=== PATIENT | female | born 1990 | race Caucasian/White ===

== ENCOUNTER 2017-05-09 08:51 | Inpatient (IN) | payer OTHER ==
[~2017-05-09] VITALS: Ht 157.5 cm; Wt 59.0 kg
[2017-05-09 12:15] VITALS: BP 121/79
--- NOTE | 2017-05-09 12:15 | NUR ---
Pre-Assessment Pt is A&Ox 3, ambulatory independently. Dr. Woods is present. Pt is mildly intoxicated from last use of Heroin, Methamphetamine, Xanax this morning. Pt denies N/V but states that she has loss of appetite. Pt has stable V/S. Home medications brought. Pt states that she has had multiple relapses and that she has been to detox facilities. I will do initial admission assessment and skin assessment upon arrival to the unit. Will cont. to monitor the pt.
[2017-05-09] MEDS ORDERED: QUET200T PO (12:51)
[2017-05-09] MEDS ORDERED: BUPR300T54 PO (12:51)
[2017-05-09] MEDS ORDERED: GABA800T2 PO (12:51)
[2017-05-09] MEDS ORDERED: TRAZ-144 PO (12:51)
[2017-05-09] MEDS ORDERED: MIRALAX 17 GM POWD.PACK PO PRN (13:00)
[2017-05-09] MEDS ORDERED: BUPRENORPHINE HCL 2 MG TAB.SUBL SL PRN (13:00)
[2017-05-09] MEDS ORDERED: ONDANSETRON 4 MG/2 ML VIAL IM PRN (13:00)
[2017-05-09] MEDS ORDERED: LORAZEPAM 2 MG/1 ML VIAL IM PRN (13:00)
[2017-05-09] MEDS ORDERED: diphenhydrAMINE 50 MG CAPSULE PO PRN (13:00)
[2017-05-09] MEDS ORDERED: ONDANSETRON ODT 4 MG TAB.RAPDIS SL PRN (13:00)
[2017-05-09] MEDS ORDERED: LOPERAMIDE HCL 2 MG CAPSULE PO PRN ×2 (13:00)
[2017-05-09] MEDS ORDERED: MAG HYDROX/AL HYDROX/SIMETH 30 ML LIQUID UDC PO PRN (13:00)
[2017-05-09] MEDS ORDERED: MAGNESIUM HYDROXIDE 30 ML LIQUID UDC PO PRN (13:00)
[2017-05-09] MEDS ORDERED: ACETAMINOPHEN 325 MG TABLET PO PRN (13:00)
[2017-05-09] MEDS ORDERED: DICYCLOMINE HCL 20 MG TABLET PO PRN (13:00)
[2017-05-09] MEDS ORDERED: DIAZEPAM 5 MG TABLET PO PRN (13:00)
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
[2017-05-09 13:29] LABS: *URINE HCG, QUAL NEGATIVE (NEGATIVE)
[2017-05-09 13:34] LABS: *AMPHETAMINE, URINE POSITIVE (NEGATIVE); *BARBITURATE, URINE POSITIVE (NEGATIVE); *CANNABINOID, URINE NEGATIVE (NEGATIVE); *COCCAINE, URINE NEGATIVE (NEGATIVE); *OPIATE, URINE POSITIVE (NEGATIVE); *PHENCYCLIDINE SCREEN,URINE NEGATIVE (NEGATIVE)
[2017-05-09 13:41] LABS: BASOPHILS % (AUTO) 0.4 % (0.0-2.0); EOSINOPHILS # (AUTO) 0.1 K/uL (0.0-0.7); EOSINOPHILS % (AUTO) 0.8 % (0.0-7.0); HEMATOCRIT 41.1 % (37-47); HEMOGLOBIN 13.9 G/DL (12.0-16.0); LYMPHOCYTES # (AUTO) 3.5 K/UL (0.8-4.8); MEAN CORPUSCULAR HEMOGLOBIN 30.1 UUG (27.0-31.0); MEAN CORPUSCULAR HGB CONC 34 g/dL (32.0-37.0); MEAN CORPUSCULAR VOLUME 89.2 FL (81.0-99.0); MONOCYTES # (AUTO) 0.6 K/UL (0.1-1.30); MONOCYTES % (AUTO) 6.8 % (0.0-11.0); NEUTROPHILS # (AUTO) 4.1 K/UL (1.8-8.9); PLATELET COUNT (AUTO) 271 K/UL (150-450); RED BLOOD CELL COUNT(AUTO) 4.61 MIL/UL (4.2-5.4); WHITE BLOOD COUNT (AUTO) 8.3 K/UL (4.0-11.2)
[2017-05-09 13:50] LABS: ALANINE AMINOTRANSFERASE 25 U/L (14-59); ALKALINE PHOSPHATASE 75 U/L (50-136); AMYLASE 33 U/L (25-115); ASPARTATE AMINOTRANSFERASE 23 U/L (15-37); BILIRUBIN,TOTAL 0.5 mg/dL (0.2-1.0); CARBON DIOXIDE 30 mmol/L (21-32); CHLORIDE 100 mmol/L (98-107); CREATININE 0.7 mg/dL (0.6-1.3); GLUCOSE 95 mg/dL (74-106); LIPASE 72 U/L (73-393); MAGNESIUM 1.9 mg/dL (1.8-2.4); POTASSIUM 3.9 mmol/L (3.5-5.1); TOTAL PROTEIN, SERUM 8.6 g/dL (6.4-8.2); UREA NITROGEN, BLOOD 13 mg/dL (7-18)
[2017-05-09 13:52] LABS: ETHANOL < 3 MG/DL (0-0)
[2017-05-09] MEDS ORDERED: Medication Not On Formulary EA (Bupropion Hcl (Bupropion Xl) 1 TAB) PO SCH (14:00)
[2017-05-09] MEDS ORDERED: Medication Not On Formulary EA (Gabapentin 1 TAB) PO SCH (14:00)
[2017-05-09] MEDS ORDERED: THIAMINE HCL 200 MG/2 ML VIAL IM ONE (14:30)
--- NOTE | 2017-05-09 14:35 | NUR ---
Therapist prompted client about group times. Client stated she will probably not attend today because she is very tired.
[2017-05-09] MEDS: buPROPion XL 150 MG TAB.SR.24H PO SCH (14:39)
[2017-05-09] MEDS: IBUPROFEN 600 MG TABLET PO PRN (14:40)
--- NOTE | 2017-05-09 14:40 | NUR ---
PRN Medication Administration-Valium Pt is in room with anxiety, restless ness, mild pacing, mild irritability and agitation, HR 96-100, mild tremors noted CIWA 7 COWS 7; PRN Valium 5mg given w/n parameters as ordered and pt refused initial dose of PRN Subutex and states that she feels as if she does not need it now. Will reassess in 1H. Addendum: 05/09/17 at 1835 by TRINH HAUSER RN Pt c/o ARAYA 6/10 and nausea; PRN Motrin 600mg and Zofran 4mg SL given as ordered.
--- NOTE | 2017-05-09 15:15 | NUR ---
Reassessment Pt is room still restless and anxious with mild tremors still present, but denies ARAYA, and no nausea; PRN Motrin and Zofran are effective. Pt states that she want to smoke and needs something for her anxiety. I stated that I will call Dr. Woods for new orders. Will cont. to monitor the pt.
[2017-05-09 16:00] VITALS: BP 115/82
[2017-05-09] MEDS ORDERED: DIAZEPAM 10 MG TABLET PO ONE (16:00)
[2017-05-09] MEDS: GABAPENTIN 400 MG CAPSULE PO SCH ×2 (16:15→21:18)
--- NOTE | 2017-05-09 16:15 | NUR ---
New Orders-Valium New orders for gabapentin 800mg qid and Valium 10mg ONCE for anxiety COWS 11, CIWA 14 both given as ordered. Will reassess in 1H.
[2017-05-09] MEDS ORDERED: GABAPENTIN 400 MG CAPSULE PO SCH (17:00)
--- NOTE | 2017-05-09 17:20 | NUR ---
Reassessment Pt is getting ready to go to cafeteria for dinner and states that she feels better, with less anxiety, less tremors HR 92 CIWA 8. Will cont to monitor the pt.
--- NOTE | 2017-05-09 18:46 | NUR ---
End of Shift Report to night nurse: pt is a 26 y/o female new her for Opiate dependence r/t Heroin IV 2g/d, Benzo r/t Xanax 5-20mg PO /d for 2 months, Methamphetamine 0.5g IV/d for 2 months, and Etoh r/t Vodka 350mL daily; 5 day Subutex taper and 5 day Valium taper ordered to start tomorrow. PRN Valium 5mg given with CIWA 7, and Valium 10mg ONCE with CIWA 14 and was effective since the CIWA decreased to 8. Pt is a full code, regular diet, NKA, fall and seizure precautions ordered. HHx: anxiety, depression, Hep C+, homeless, seizure 1 month ago r/t w/d, insomnia, [place] disease, tachycardia, Headaches, STD's years ago and multiple relapses. V/S stable except HR 109 with anxiety at rest. Skin is not intact. PRN Zofran and Motrin given to day. Last COWS 11 and CIWA 8.
--- NOTE | 2017-05-09 18:46 | NUR ---
START OF SHIFT NOTE: Patient endorsed by day shift nurse in stable condition. Report received. Patient is a 26 year old female admitted to [facility]2017 for medically supervised withdrawal from Benzodiazepines, ETOH, Opioid, and Methamphetamine, continue 5 Day Valium and 5 Day Subutex Taper since 05/09/2017 with tolerated well without ASE. Patient remained compliant with treatment, medications and diet regime. Patient reports NKA. Patient is on Full Code, Regular Diet, Fall and Seizures Precautions. PMH: Anxiety, Depression, Seizures Hx "one month ago r/t withdrawal", Hepatitis C, Insomnia, Headache, Tachycardia, STD "years ago: Chlamydia and HPV", Substance abuse, Tobacco dependence. Substance Use: ETOH: " Vodka 350mL/d for 2 months and last use 2-3 days ago". Xanax: "5-20mg PO daily for 2 months with the last use this morning". Heroin IV: 2 grams every day during last 2 months. Last used 2 grams this morning", Methamphetamine: "0.5g via IV injection every day for 2 months w/ the last use this morning". Phenobarbital PO: "2-3 mg during last 6 months. Last use 1 week ago". Smoker of 1 pack per day. She has been to a treatment programs in the past, 30 day in pt program w/ DC to [facility], with reported relapse soon after discharge. Upon endorsement, patient is in the room. Assessment done. Patient is alert and oriented x4. Speech is clear and soft. COWS 7, CIWA 8. Patient presented with mild anxiety, agitation, tachycardia, nervousness, mild nausea, diaphoresis, tremors that can be felt, restlessness, body aches, insomnia and fatigue. Patient denies SI/HI. VSWNL. Respirations unlabored and even. Patient denies SOB and chest pain. Lungs Sounds are clear bilaterally. Bowel Sounds active in all x4 quadrants. 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 Encourage fluids as tolerated. Encourage to attend activities group. All needs met. Safety measures on place. Call light within reach, bed in lowest position and locked, padded rails up bilaterally rails up bilaterally. Will continue to monitor closely. Addendum: 05/10/17 at 0345 by NAKIA ALEX RN PMH: [place] disease.
[2017-05-09 20:00] VITALS: BP 126/78
[2017-05-09] MEDS: QUETIAPINE FUMARATE 200 MG TABLET PO SCH (21:18)
[2017-05-09] MEDS: TRAZODONE 50 MG TABLET PO SCH (21:19)
[2017-05-09] MEDS: DIAZEPAM 10 MG TABLET PO PRN ×2 (21:24→22:36)
[2017-05-09] MEDS: METHOCARBAMOL 750 MG TABLET PO PRN (21:24)
--- NOTE | 2017-05-09 21:25 | NUR ---
PRN VALIUM 10 MG PO AND PRN ROBAXIN 750 MG PO ADMINISTRATION Patient reported of increased in anxiety, agitation, nervousness, sweats, muscle spasm, and tremors. Patient assessed. CIWA score noted-10. Patient were given PRN Valium 10mg for CIWA 10 and PRN [id number] mg PO for muscle spasm as ordered. All needs met. Safety measures on place. Call light within reach, bed in lowest position and locked, padded rails up bilaterally rails up bilaterally. Will continue to monitor closely.
--- NOTE | 2017-05-09 22:25 | NUR ---
RE-ASSESSMENT Patient reported feeling of moderate anxious, nervousness,tremors,muscle spasm, and sweats. CIWA score noted increased from 11 to 17. Medications was not effective. MD notified. All needs met. Safety measures on place. Call light within reach, bed in lowest position and locked, padded rails up bilaterally rails up bilaterally. Will continue to monitor closely.
--- NOTE | 2017-05-09 22:36 | NUR ---
PRN VALIUM 20 MG PO ADMINISTRATED Patient reported of increased in anxiety, agitation, nervousness, sweats, tremors, and tachycardia. Patient assessed. HR:114. CIWA score noted-17. MD aware. Patient were given of PRN Valium 20mg for CIWA 17 as ordered. All needs met. Safety measures on place. Call light within reach, bed in lowest position and locked, padded rails up bilaterally rails up bilaterally. Will continue to monitor closely.
--- NOTE | 2017-05-09 23:36 | NUR ---
RE-ASSESSMENT Patient reported medication's effective feeling less agitated, anxious, CIWA score noted 9. All needs met. Safety measures on place. Call light within reach, bed in lowest position and locked, padded rails up bilaterally rails up bilaterally. Will continue to monitor closely.
[2017-05-10] VITALS: BP 108/76
[2017-05-10 04:00] VITALS: BP 84/55
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
--- NOTE | 2017-05-10 07:30 | NUR ---
Start of shift note; Received report from night nurse. Patient is a 26 year old female admitted on 05/09/17 for Opiate/Benzo/ETOH withdrawals. Patient was placed on 5 day Subutex and 5 day Valium taper, no adverse reactions noted. Patient is currently resting with eyes closed, respirations even and unlabored. Patient reported history of Hep C, seizure r/t withdrawals, headaches, anxiety, depression, insomnia, lyme disease. Patient's last CIWA is 5 and last COWS is 7 at 0400. Patient slept for 4 hours. Track farley noted on bilateral upper extremities. Patient is on fall and seizure precaution. All safety measures secured. Will continue to monitor patient.
[2017-05-10 08:00] VITALS: BP 104/76
[2017-05-10] MEDS: GABAPENTIN 400 MG CAPSULE PO SCH ×4 (08:17→21:08)
[2017-05-10] MEDS: buPROPion XL 150 MG TAB.SR.24H PO SCH (08:17)
[2017-05-10] MEDS: DOCUSATE SODIUM 250 MG CAPSULE PO SCH (08:18)
[2017-05-10] MEDS: FOLIC ACID 1 MG TABLET PO SCH (08:18)
[2017-05-10] MEDS: DIAZEPAM 10 MG TABLET PO SCH ×4 (08:18→21:08)
[2017-05-10] MEDS: MULTIVITAMINS,THERAPEUTIC TABLET PO SCH (08:18)
[2017-05-10] MEDS: BUPRENORPHINE HCL 2 MG TAB.SUBL SL SCH ×4 (08:18→21:08)
[2017-05-10] MEDS: THIAMINE HCL 100 MG TABLET PO SCH (08:18)
[2017-05-10] MEDS: METHOCARBAMOL 750 MG TABLET PO PRN ×2 (08:30→21:19)
[2017-05-10] MEDS: DIAZEPAM 10 MG TABLET PO PRN ×2 (08:37→08:42)
--- NOTE | 2017-05-10 08:42 | NUR ---
PRN medication and MD communication; Patient's current COWS score is 12 and CIWA score of 16 manifested by fine tremors, increase in anxiety and agitation, hot and cold sweats, muscle aches, mild headache. Patient was started on 5 day Subutex and 5 day Valium taper. MD was notified regarding patient's COWS/ CIWA scores. Per MD to administer additional Valium 20mg PO PRN to prevent further withdrawals and seizure. Order clarified with MD. Medications given as per MD order. PRN Robaxin PO also given for muscle aches. Will continue to monitor patient for effectiveness of medication.
[2017-05-10] MEDS ORDERED: 5 DAY TAPER BUPRENORPHINE -SERENITY PROTOCOL SL PRN (09:00)
[2017-05-10] MEDS ORDERED: TUBERCULIN,PURIF.PROT.DERIV. 5 TU/0.1 ML TEST ID ONE (09:00)
[2017-05-10] MEDS ORDERED: 5 DAY TAPER VALIUM-SERENITY PROTOCOL PO PRN (09:00)
--- NOTE | 2017-05-10 09:42 | NUR ---
Re-assessment; Patient's CIWA score decrease to 9 from score of 16. Patient also stated improvement of muscle aches. PRN medications were effective. Will closely monitor patient. Patient is on seizure precautions.
[2017-05-10 10:11] LABS: HEPATITIS B SURFACE AG Negative (Negative)
[2017-05-10 12:00] VITALS: BP 126/76
--- NOTE | 2017-05-10 13:13 | NUR ---
MD Communication; Dr. Woods on unit. Patient was seen and assessed by MD. MD ordered to hold 1300 Valium and Subutex doses, MD to re-adjust taper doses. Held due medications as per MD order. Will continue to monitor patient.
[2017-05-10] MEDS: IBUPROFEN 600 MG TABLET PO PRN (13:32)
--- NOTE | 2017-05-10 13:32 | NUR ---
PRN medication; Patient is complaining of back pain rated 5/10, PRN Motrin 600mg PO given for pain. Will continue to monitor patient for effectiveness of medication.
[2017-05-10] MEDS ORDERED: DIAZEPAM 5 MG TABLET PO PRN (13:45)
[2017-05-10] MEDS ORDERED: DIAZEPAM 10 MG TABLET PO PRN ×2 (13:45)
--- NOTE | 2017-05-10 14:32 | NUR ---
Re-assessment; Patient reported decrease of back pain rated 3/10. PRN medication is effective.
[2017-05-10 16:00] VITALS: BP 103/60
--- NOTE | 2017-05-10 18:38 | NUR ---
End of shift note; Patient is AOX4. Patient is a 26 year old female admitted on 05/09/17 for Opiate/Benzo/ETOH withdrawals. Patient was placed on 5 day Subutex and 5 day Valium taper, no adverse reactions noted. Patient reported history of Hep C, seizure r/t withdrawals, headaches, anxiety, depression, insomnia, lyme disease. Patient remained compliant with treatment plan and medication regime. Medications were effective in reducing withdrawal symptoms. All safety measures secured. Met all needs.
--- NOTE | 2017-05-10 19:30 | NUR ---
START OF SHIFT Patient is a 26 year old female admitted on 05/09/17 for Opiate/Benzo/ETOH withdraeals,continues on 5 day Subutex and 5 day Valium taper, no adverse reactions noted. PMH of Hep C, seizure r/t withdrawals, headaches, anxiety, depression, insomnia, lyme disease. Patient's last CIWA 6 and last COWS is 7 at 1600. Track farley on bilateral upper extremities. Patient is on fall and seizure precaution. All safety measures in place per policy. Will continue to monitor .
[2017-05-10 20:00] VITALS: BP 108/66
[2017-05-10] MEDS: QUETIAPINE FUMARATE 200 MG TABLET PO SCH (21:08)
[2017-05-10] MEDS: TRAZODONE 50 MG TABLET PO SCH (21:08)
--- NOTE | 2017-05-10 21:20 | NUR ---
PRN ROBAXIN GIVEN ORDERED FOR MYALGIA PER PT REQUEST.
--- NOTE | 2017-05-10 22:20 | NUR ---
PRN F/U PRN effective,Pt sates "feeling better";will continue to monitor.
[2017-05-11] VITALS: BP 95/64
[2017-05-11 04:00] VITALS: BP 122/89
--- NOTE | 2017-05-11 06:43 | NUR ---
END OF SHIFT Patient is a 26 year old female admitted on 05/09/17 for Opiate/Benzo/ETOH withdraeals,continues on 5 day Subutex and 5 day Valium taper, no adverse reactions noted. PMH of Hep C, seizure r/t withdrawals, headaches, anxiety, depression, insomnia, lyme disease. Patient's last CIWA 3 and last COWS is 2 at 0400. Track farley on bilateral upper extremities. PRN Robaxin was given last night ans was effective.Pt slept 7 hrs;fluid intake was 1446 mls,voided x 2. Patient is on fall and seizure precaution. All safety measures in place. Will continue to monitor .
--- NOTE | 2017-05-11 07:12 | NUR ---
Start of shift note; Received report from night nurse. Patient is a 26 year old female admitted on 05/09/17 for Opiate/Benzo/ETOH withdrawals. Patient was placed on 5 day Subutex and 5 day Valium taper, no adverse reactions noted. Patient is currently resting with eyes closed, respirations even and unlabored. Patient reported history of Hep C, seizure r/t withdrawals, headaches, anxiety, depression, insomnia, lyme disease. Patient's last CIWA is 3 and last COWS is 2 at 0400. Patient slept for 7 hours. Track farley noted on bilateral upper extremities. Patient is on fall and seizure precaution. All safety measures secured. Will continue to monitor patient.
[2017-05-11 08:00] VITALS: BP 104/63
[2017-05-11] MEDS: FOLIC ACID 1 MG TABLET PO SCH (08:29)
[2017-05-11] MEDS: THIAMINE HCL 100 MG TABLET PO SCH (08:29)
[2017-05-11] MEDS: MULTIVITAMINS,THERAPEUTIC TABLET PO SCH (08:29)
[2017-05-11] MEDS: GABAPENTIN 400 MG CAPSULE PO SCH ×4 (08:29→20:58)
[2017-05-11] MEDS: DIAZEPAM 10 MG TABLET PO SCH ×3 (08:29→20:59)
[2017-05-11] MEDS: DOCUSATE SODIUM 250 MG CAPSULE PO SCH (08:29)
[2017-05-11] MEDS: BUPRENORPHINE HCL 2 MG TAB.SUBL SL SCH ×3 (08:29→20:59)
[2017-05-11] MEDS: buPROPion XL 150 MG TAB.SR.24H PO SCH (08:30)
[2017-05-11] MEDS: METHOCARBAMOL 750 MG TABLET PO PRN ×2 (08:34→21:01)
--- NOTE | 2017-05-11 08:34 | NUR ---
PRN medication; Patient is complaining of muscle aches. PRN Robaxin 750mg PO given to patient for muscle aches. Will continue to monitor effectiveness of medication.
--- NOTE | 2017-05-11 09:34 | NUR ---
Re-assessment; Patient reported decrease in muscle aches. PRN Robaxin is effective.
[2017-05-11] MEDS: QUETIAPINE FUMARATE 25 MG TABLET PO SCH (10:02)
[2017-05-11 12:00] VITALS: BP 109/69
[2017-05-11 16:00] VITALS: BP 94/61
--- NOTE | 2017-05-11 18:27 | NUR ---
End of shift note; Patient is AOX4. Patient is a 26 year old female admitted on 05/09/17 for Opiate/Benzo/ETOH withdrawals. Patient was placed on 5 day Subutex and 5 day Valium taper, no adverse reactions noted. Patient reported history of Hep C, seizure r/t withdrawals, headaches, anxiety, depression, insomnia, lyme disease. Patient remained compliant with treatment plan and medication regime. Medications were effective in reducing withdrawal symptoms. Patient's last COWS score is 3 and last CIWA score is 2. All safety measures secured. Met all needs.
--- NOTE | 2017-05-11 19:40 | NUR ---
START OF SHIFT Received 26 year old female patient admitted on 05/09/17 for Heroin, Xanax, Meth, ETOH and Phenobarbital dependency. Pt reports a PMHx of Hep C+, seizure 1 month ago related to withdrawal, anxiety, depression, insomnia, lyme disease, STD (HPV & Chlamydia), and tachycardia. She reports using Heroin 2 gram daily for 2 months. Last dose was 05/09/17. Xanax 5-20 mg daily for 2 months. Last dose was 05/09/17, Methamphetamine 0.5 grams daily for 2 months. Last dose 05/09/17. Vodka 350 mL daily for 2 months. Last dose was 2-3 days ago. Phenobarbital 3 mg PO daily for 6 weeks. Last dose was 1 week ago. Pt placed on 5 day Subutex taper and 5 day Valium taper started on 05/10/17 and tolerating well. Per endorsement, pt received PRN Robaxin. Pt is alert and oriented x4, breathing is even and unlabored. Safety measures in place. Will continue to monitor.
[2017-05-11 20:00] VITALS: BP 110/78
[2017-05-11] MEDS: QUETIAPINE FUMARATE 100 MG TABLET PO SCH (20:58)
--- NOTE | 2017-05-11 21:01 | NUR ---
PRN ROBAXIN Pt complains of body aches 02/09. PRN Robaxin administered as ordered. Breathing even and unlabored, safety measures in place. Will monitor effectiveness.
--- NOTE | 2017-05-11 22:01 | NUR ---
PRN ROBAXIN REASSESSMENT PRN medication effective. Pt denies pain/body aches. Safety measures in place. Will continue to monitor.
[2017-05-11] MEDS: HYDROXYZINE PAMOATE 25 MG CAPSULE PO PRN (22:31)
--- NOTE | 2017-05-11 22:31 | NUR ---
PRN VISTARIL Pt complains of anxiety and restlessness. PRN Vistaril administered as ordered. Breathing is even and unlabored, safety measures in place. Will monitor effectiveness.
--- NOTE | 2017-05-11 23:31 | NUR ---
PRN VISTARIL REASSESSMENT PRN medication effective. Pt reports decrease in anxiety. Pt lying in bed, breathing is even and unlabored. Safety measures in place. Will monitor.
--- NOTE | 2017-05-12 | NUR ---
VITALS REFUSED, COWS/CIWA DEFERRED 0000 vitals refused. COWS and CIWA deferred d/t pt lying comfortably in bed, with eyes closed noted to be asleep. No facial grimacing noted. Breathing even and unlabored, safety measures in place. Will monitor.
--- NOTE | 2017-05-12 04:00 | NUR ---
VITALS REFUSED, COWS/CIWA DEFERRED 0400 vitals refused. COWS and CIWA deferred d/t pt lying comfortably in bed, with eyes closed noted to be asleep. No facial grimacing noted. Breathing even and unlabored, safety measures in place. Will continue to monitor.
--- NOTE | 2017-05-12 07:12 | NUR ---
END OF SHIFT Pt is a 26 year old female patient admitted on 05/09/17 for Heroin, Xanax, Meth, ETOH and Phenobarbital dependency. Pt reports a PMHx of Hep C+, seizure 1 month ago related to withdrawal, anxiety, depression, insomnia, lyme disease, STF (HPV & Chlamydia), and tachycardia. Pt continues on a 5 day Subutex taper and 5 day Valium taper started on 05/10/17 and tolerating well. At 2101 she received PRN Robaxin. At 2231 she received PRN Vistaril. She slept a total of 6 hrs, Intake:1250mL Void:x2 BM:0 COWS:7, CIWA:4. Pt remains alert and oriented x4, breathing is even and unlabored. Safety measures in place. Endorsed to oncoming shift.
--- NOTE | 2017-05-12 07:20 | NUR ---
Start of shift note Pt was admitted for opiate, benzo, ETOH, phenobarbital and methamphetamine dependence. Pt has a PMhx of hep C, withdrawal induced seizures, headaches, tachycardia, anxiety, depression, insomnia, lyme disease, and STD's. Pt is on a valium and subutex taper and tolerating well per report. Pt is a full code, denies any drug allergies and is on a regular diet. Pt is on fall and seizure precautions. Pt is currently resting in her bed, pt has no complaints at this time. Pt bed is locked in low position, call light within reach, side rails up x2. Will continue to monitor pt.
[2017-05-12 08:00] VITALS: BP 106/60
[2017-05-12] MEDS: FOLIC ACID 1 MG TABLET PO SCH (08:46)
[2017-05-12] MEDS: buPROPion XL 150 MG TAB.SR.24H PO SCH (08:46)
[2017-05-12] MEDS: THIAMINE HCL 100 MG TABLET PO SCH (08:46)
[2017-05-12] MEDS: MULTIVITAMINS,THERAPEUTIC TABLET PO SCH (08:46)
[2017-05-12] MEDS: GABAPENTIN 400 MG CAPSULE PO SCH ×4 (08:47→21:17)
[2017-05-12] MEDS: QUETIAPINE FUMARATE 25 MG TABLET PO SCH (08:47)
[2017-05-12] MEDS: DIAZEPAM 5 MG TABLET PO SCH ×4 (08:47→21:17)
[2017-05-12] MEDS: DOCUSATE SODIUM 250 MG CAPSULE PO SCH (08:47)
[2017-05-12] MEDS ORDERED: BUPRENORPHINE HCL 2 MG TAB.SUBL SL SCH (09:00)
--- NOTE | 2017-05-12 09:34 | NUR ---
PRN administration Pt c/o muscle aches of 01/10. Administered PRN robaxin per MD order. Will continue to monitor pt. Pt also stated that she has a toothache and would like PRN clonidine, notified Dr Woods.
[2017-05-12] MEDS: METHOCARBAMOL 750 MG TABLET PO PRN ×2 (09:37→16:55)
--- NOTE | 2017-05-12 10:34 | NUR ---
reassessment Pt states that the robaxin was effective. Pt states that she doesn't have any muscle aches at this time.
[2017-05-12 12:00] VITALS: BP 111/73
[2017-05-12] MEDS: IBUPROFEN 600 MG TABLET PO PRN (12:32)
--- NOTE | 2017-05-12 12:33 | NUR ---
PRN administration Pt c/o headache 01/10, administered PRN motrin per MD order. Will continue to monitor pt.
--- NOTE | 2017-05-12 13:30 | NUR ---
Reassessment Pt states that the motrin relieved her headache. Pt has no further complaints at this time.
[2017-05-12] MEDS: BUPRENORPHINE HCL 2 MG TAB.SUBL SL SCH ×2 (15:43→21:17)
[2017-05-12 16:00] VITALS: BP 110/81
[2017-05-12] MEDS: CLONIDINE HCL 0.1 MG TABLET PO PRN (16:55)
--- NOTE | 2017-05-12 16:55 | NUR ---
PRN administration Pt c/o anxiety and muscle aches. Administered PRN clondine and PRN robaxin per pt request. Will continue to monitor pt.
--- NOTE | 2017-05-12 17:55 | NUR ---
Reassessment Pt states that the robaxin and clonidine were effective in eliminating her anxiety and muscle aches. Will continue to monitor pt. All needs addressed at this time.
--- NOTE | 2017-05-12 19:06 | NUR ---
End of shift note Pt was admitted for opiate, benzo, ETOH, phenobarbital and methamphetamine dependence. Pt has a PMhx of hep C, withdrawal induced seizures, headaches, tachycardia, anxiety, depression, insomnia, lyme disease, and STD's. Pt is on a valium and subutex taper and tolerating well per report. Pt is a full code, denies any drug allergies and is on a regular diet. Pt is on fall and seizure precautions. Pt required multiple PRN medications during the shift to manage her s/s of withdrawal. Pt had robaxin x2, motrin for a headache and clondine for her anxiety with effectiveness. Pt ate 0% of breakfast, 75% of lunch and 100% of dinner and drank 1296ml of fluids, had 3 voids and 1 small BM during the shift.
--- NOTE | 2017-05-12 19:15 | NUR ---
START OF SHIFT Received 26 year old female patient admitted on 05/09/17 for Heroin, Xanax, Meth, ETOH and Phenobarbital dependency. Pt reports a PMHx of Hep C+, seizure 1 month ago related to withdrawal, anxiety, depression, insomnia, lyme disease, STD (HPV & Chlamydia), and tachycardia. She reports using Heroin 2 gram daily for 2 months. Last dose was 05/09/17. Xanax 5-20 mg daily for 2 months. Last dose was 05/09/17, Methamphetamine 0.5 grams daily for 2 months. Last dose 05/09/17. Vodka 350 mL daily for 2 months. Last dose was 2-3 days ago. Phenobarbital 3 mg PO daily for 6 weeks. Last dose was 1 week ago. Pt placed on 5 day Subutex taper and 5 day Valium taper started on 05/10/17 and tolerating well. Per endorsement, pt was noted with increased HR and she received PRN Robaxin, clonidine and Motrin. Pt is alert and oriented x4, breathing is even and unlabored. Safety measures in place. Will continue to monitor.
[2017-05-12 20:00] VITALS: BP 113/75
[2017-05-12] MEDS: QUETIAPINE FUMARATE 100 MG TABLET PO SCH (21:27)
[2017-05-12] MEDS: HYDROXYZINE PAMOATE 25 MG CAPSULE PO PRN (22:13)
--- NOTE | 2017-05-12 22:13 | NUR ---
PRN VISTARIL Pt complains of anxiety. PRN Vistaril administered as ordered. Breathing is even and unlabored, safety measures in place. Will continue to monitor.
--- NOTE | 2017-05-12 23:13 | NUR ---
PRN VISTARIL REASSESSMENT PRN medication effective. Pt lying in bed with eyes closed noted to be asleep. Respirations 16, breathing is even and unlabored, safety measures in place. Will continue to monitor.
--- NOTE | 2017-05-13 | NUR ---
VITALS REFUSED, COWS/CIWA DEFERRED 0000 vitals refused. COWS and CIWA deferred d/t pt lying comfortably in bed, with eyes closed noted to be asleep. No facial grimacing noted. Breathing even and unlabored, safety measures in place. Will continue to monitor.
--- NOTE | 2017-05-13 04:00 | NUR ---
VITALS REFUSED, COWS/CIWA DEFERRED 0400 vitals refused. COWS and CIWA deferred d/t pt lying comfortably in bed, with eyes closed noted to be asleep. No facial grimacing noted. Breathing even and unlabored, safety measures in place. Will monitor.
--- NOTE | 2017-05-13 07:13 | NUR ---
END OF SHIFT Pt is a 26 year old female patient admitted on 05/09/17 for Heroin, Xanax, Meth, ETOH and Phenobarbital dependency. Pt reports a PMHx of Hep C+, seizure 1 month ago related to withdrawal, anxiety, depression, insomnia, lyme disease, STD (HPV & Chlamydia), and tachycardia. She continues on a 5 day Subutex taper and 5 day Valium taper started on 05/10/17 and is tolerating well. At 2213 pt received PRN Vistaril . She slept a total of 6hrs, Intake: 1200mL, Void: x2, BM:0, COWS:6, CIWA:5. Pt remains alert and oriented x4, breathing is even and unlabored. Safety measures in place. Endorsed to oncoming shift.
--- NOTE | 2017-05-13 07:15 | NUR ---
Start of shift note SBAR report rcv'd. Pt was admitted for benzo, etoh, opiate, phenobarbital and methamphetamine dependence. Pt has a PMHx of hep C, seizures, headaches, anxiety, depression, insomnia, lyme disease and tachycardia. Pt is on a subutex and valium taper. Pt is currently ambulating around the unit, pt has no complaints at this time. P tis a full code, on a regular diet and denies any drug allergies. Will continue to monitor pt. All needs addressed at this time.
[2017-05-13 08:00] VITALS: BP 119/80
[2017-05-13] MEDS: buPROPion XL 150 MG TAB.SR.24H PO SCH (08:21)
[2017-05-13] MEDS: THIAMINE HCL 100 MG TABLET PO SCH (08:21)
[2017-05-13] MEDS: MULTIVITAMINS,THERAPEUTIC TABLET PO SCH (08:21)
[2017-05-13] MEDS: DIAZEPAM 5 MG TABLET PO SCH ×3 (08:21→20:55)
[2017-05-13] MEDS: FOLIC ACID 1 MG TABLET PO SCH (08:21)
[2017-05-13] MEDS: METHOCARBAMOL 750 MG TABLET PO PRN ×2 (08:21→17:09)
[2017-05-13] MEDS: GABAPENTIN 400 MG CAPSULE PO SCH ×4 (08:21→20:55)
[2017-05-13] MEDS: DOCUSATE SODIUM 250 MG CAPSULE PO SCH (08:21)
[2017-05-13] MEDS: IBUPROFEN 600 MG TABLET PO PRN ×2 (08:21→17:09)
[2017-05-13] MEDS: QUETIAPINE FUMARATE 25 MG TABLET PO SCH (08:21)
[2017-05-13] MEDS: BUPRENORPHINE HCL 2 MG TAB.SUBL SL SCH ×3 (08:22→20:55)
--- NOTE | 2017-05-13 08:24 | NUR ---
PRN administration Pt c/o pain in tooth of 5/10 and muscle aches of 5/10. Administered PRN robaxin and PRN motrin as ordered. Will continue to monitor pt. Instructed pt to follow up with dentist upon discharge for toothache, pt verbalized her understanding. Dr Woods aware.
--- NOTE | 2017-05-13 09:24 | NUR ---
Reassessment Pt states that the medications were effective in alleviating her pain and muscle aches. Pt states that she is comfortable at this time. Will continue to monitor pt.
[2017-05-13 12:00] VITALS: BP 117/67
[2017-05-13 17:03] VITALS: BP 133/86
[2017-05-13] MEDS: CLONIDINE HCL 0.1 MG TABLET PO PRN (17:09)
[2017-05-13] MEDS: HYDROXYZINE PAMOATE 25 MG CAPSULE PO PRN (17:09)
--- NOTE | 2017-05-13 17:10 | NUR ---
PRN administration Pt c/o severe anxiety, muscle aches, and tooth pain 01/10. Administered PRN robaxin, motrin, clonidine and visatril per MD order. Will continue to monitor pt.
--- NOTE | 2017-05-13 18:10 | NUR ---
Reassessment Pt states that the medication was effective in alleviating her pain and anxiety. Pt states that she is comfortable at this time. Will continue to monitor pt.
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
--- NOTE | 2017-05-13 18:53 | NUR ---
End of shift note Pt was admitted for benzo, etoh, opiate, phenobarbital and methamphetamine dependence. Pt has a PMHx of hep C, seizures, headaches, anxiety, depression, insomnia, lyme disease and tachycardia. Pt is on a subutex and valium taper. Pt continues to complain of her tooth pain, pt states that she plans to see a dentist upon discharge. Pt had multiple PRN medications throughout the shift to manage her s/s of withdrawal and pain from her tooth. Pt drank 1486ml of fluids, ate 50% of lunch and 100% of dinner, had 5 voids and 2 BMs during the shift. Pt was compliant with the plan of care and states that she is comfortable at this time. Pt has no further complaints. Will endorse SBAR to oncoming shift.
[2017-05-13 20:00] VITALS: BP 113/82
[2017-05-13] MEDS: QUETIAPINE FUMARATE 100 MG TABLET PO SCH (20:55)
[2017-05-14] VITALS: BP 99/66
[2017-05-14 04:00] VITALS: BP 91/56
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
--- NOTE | 2017-05-14 07:50 | NUR ---
START OF SHIFT NOTE Received patient this Am Aox4. Patient states she is very tired and wants to keep sleeping. Patient on 5 day Subutex/ 5 day Valium taper. No PRNS given during shift production supervisor. She slept 6 hours. Last CIWA 3 COWS 3 per night nurse. Encouraged patient to attend groups and activities. Encouraged patient to increase fluid intake to facilitate detox. Encouraged pt to notify RN if S/S of W/D worsen. Will monitor closely and offer help.
[2017-05-14 08:00] VITALS: BP 95/64
[2017-05-14] MEDS: buPROPion XL 150 MG TAB.SR.24H PO SCH (08:39)
[2017-05-14] MEDS: DOCUSATE SODIUM 250 MG CAPSULE PO SCH (08:40)
[2017-05-14] MEDS: FOLIC ACID 1 MG TABLET PO SCH (08:40)
[2017-05-14] MEDS: GABAPENTIN 400 MG CAPSULE PO SCH ×2 (08:43→12:27)
[2017-05-14] MEDS: MULTIVITAMINS,THERAPEUTIC TABLET PO SCH (08:43)
[2017-05-14] MEDS: THIAMINE HCL 100 MG TABLET PO SCH (08:43)
[2017-05-14] MEDS: QUETIAPINE FUMARATE 25 MG TABLET PO SCH (08:43)
[2017-05-14] MEDS ORDERED: BUPRENORPHINE HCL 2 MG TAB.SUBL SL SCH (09:00)
[2017-05-14] MEDS ORDERED: DIAZEPAM 5 MG TABLET PO SCH (09:00)
[2017-05-14 12:00] VITALS: BP 117/76
[2017-05-14] MEDS ORDERED: METHYL SALICYLATE/MENTHOL CREAM 28 GM TUBE TOP PRN (12:30)
[2017-05-14] MEDS: BUPRENORPHINE HCL 2 MG TAB.SUBL SL SCH ×2 (14:20→21:02)
[2017-05-14] MEDS: GABAPENTIN 300 MG CAPSULE PO SCH ×2 (14:21→21:01)
[2017-05-14] MEDS: CLONIDINE HCL 0.1 MG TABLET PO SCH ×2 (14:21→21:03)
[2017-05-14] MEDS: DIAZEPAM 5 MG TABLET PO SCH ×2 (14:21→21:02)
[2017-05-14] MEDS: BACLOFEN 10 MG TABLET PO SCH ×2 (14:21→21:02)
[2017-05-14 16:00] VITALS: BP 107/83
--- NOTE | 2017-05-14 18:30 | NUR ---
END OF SHIFT NOTE Patient continued on 5 day Valium/5 Day Subutex taper and tolerating well. No PRNs given during shift as detox medications are effective. Patient presented anxious during shift, but states she is constantly anxious. She attended groups and activities and socialized w/ peers. Vital signs stable. Seizure precautions in place. Last COWS 6 CIWA 4. All needs met. All safety measures in place. Will endorse to night nurse.
--- NOTE | 2017-05-14 18:30 | NUR ---
START OF SHIFT NOTE: Patient endorsed by day shift nurse in stable condition. Report received. Patient is a 26 year old female admitted to [facility] on 05/09/2017 for medically supervised withdrawal from Benzodiazepines, ETOH, Opioid, and Methamphetamine, continue 5 Day Valium and 5 Day Subutex Taper since 05/09/2017 with tolerated well without ASE. Patient remained compliant with treatment, medications and diet regime. Patient reports NKA. Patient is on Full Code, Regular Diet, Fall and Seizures Precautions. Upon endorsement, patient is in the room. Assessment done. Patient is alert and oriented x4. Speech is clear and soft. COWS 7, CIWA 7. Patient presented with mild anxiety, agitation, tachycardia, nervousness, mild nausea, diaphoresis, tremors, restlessness, body aches, insomnia and fatigue. Patient denies SI/HI. Respirations unlabored and even. Patient denies SOB and chest pain. Lungs Sounds are clear bilaterally. Bowel Sounds active in all x4 quadrants. PERRLA, brisk capillary refill, front office administrator equal and strong. Encourage fluids as tolerated. Encourage to attend activities groups. All needs met. Safety measures on place. Call light within reach, bed in lowest position and locked, padded rails up bilaterally rails up bilaterally. Will continue to monitor closely.
[2017-05-14 20:00] VITALS: BP 111/76
[2017-05-14] MEDS: QUETIAPINE FUMARATE 100 MG TABLET PO SCH (21:02)
[2017-05-15] VITALS: BP 93/67
[2017-05-15 04:00] VITALS: BP 91/51
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
[2017-05-15 08:00] VITALS: BP 101/71
--- NOTE | 2017-05-15 08:05 | NUR ---
START OF SHIFT NOTE Received patient this Am Aox4. Patient states she slept good and feels rested. Patient on 5 day Subutex/ 5 day Valium taper. No PRNS given during maintenance technician 2nd shift. She slept 7 hours. Last CIWA 2 COWS 3 at 0800 this morning. Encouraged patient to attend groups and activities. Encouraged patient to increase fluid intake to facilitate detox. Encouraged pt to notify RN if S/S of W/D worsen. Will monitor closely and offer help.
[2017-05-15] MEDS: FOLIC ACID 1 MG TABLET PO SCH (08:58)
[2017-05-15] MEDS: MULTIVITAMINS,THERAPEUTIC TABLET PO SCH (08:58)
[2017-05-15] MEDS: CLONIDINE HCL 0.1 MG TABLET PO SCH ×3 (08:58→20:10)
[2017-05-15] MEDS: BACLOFEN 10 MG TABLET PO SCH ×3 (08:58→20:10)
[2017-05-15] MEDS: GABAPENTIN 300 MG CAPSULE PO SCH ×3 (08:58→20:59)
[2017-05-15] MEDS: QUETIAPINE FUMARATE 25 MG TABLET PO SCH (08:58)
[2017-05-15] MEDS: THIAMINE HCL 100 MG TABLET PO SCH (08:58)
[2017-05-15] MEDS: buPROPion XL 150 MG TAB.SR.24H PO SCH (08:59)
[2017-05-15] MEDS ORDERED: DIAZEPAM 5 MG TABLET PO SCH (09:00)
[2017-05-15] MEDS ORDERED: BUPRENORPHINE HCL 2 MG TAB.SUBL SL SCH (09:00)
[2017-05-15 12:00] VITALS: BP 109/77
[2017-05-15 13:20] LABS: *AMPHETAMINE, URINE NEGATIVE (NEGATIVE); *BARBITURATE, URINE POSITIVE (NEGATIVE); *CANNABINOID, URINE NEGATIVE (NEGATIVE); *COCCAINE, URINE NEGATIVE (NEGATIVE); *OPIATE, URINE NEGATIVE (NEGATIVE); *PHENCYCLIDINE SCREEN,URINE NEGATIVE (NEGATIVE)
[2017-05-15 16:00] VITALS: BP 108/66
[2017-05-15] MEDS: IBUPROFEN 600 MG TABLET PO PRN (17:26)
--- NOTE | 2017-05-15 17:27 | NUR ---
prn meds prn motrin given for c/o headache 4/10 on pain scale
--- NOTE | 2017-05-15 18:19 | NUR ---
PRN REASSESSMENT PATIENT REPORTS HER HEADACHE WENT AWAY PAIN 0/10
--- NOTE | 2017-05-15 18:38 | NUR ---
END OF SHIFT NOTE Patient completed 5 day Valium/5 Day Subutex tapr. PRN Motrin given for headache with effectiveness. Patient presented happier and brighter during shift. She attended groups and activities and socialized w/ peers. Vital signs stable. Seizure precautions in place. Last COWS 3 CIWA 3. All needs met. All safety measures in place. Will endorse to night nurse.
--- NOTE | 2017-05-15 19:55 | NUR ---
START OF SHIFT 307 Received report from day shift nurse. Pt attended a group meeting and returned to her room after. She is a 26 yo female admitted to [facility] on 05/09 for ETOH, BZD, and Phenobarbital dependence. She is A&O x4 and ambulatory. NKA, full code status, and on a regular diet. She has a PMH of Hepatitis C, seizure, headaches, lyme disease, HPV, Chlamydia, tachycardia, anxiety, depression, and insomnia. On admission she reported using Vodka 350mL per day, Xanax 5-20mg per day, Heroin 2 grams per day, Phenobarbital 2 or 3 mg per day, methamphetamine 0.5grams per day. She completed a 5 day Ativan and 5 day Subutex today and is scheduled for discharge tomorrow. Pt reports mild stomach cramps and anxiety related to discharge tomorrow. Provided support and encouragement. Fall and seizure precautions in place. Bed is down with call light in reach.
[2017-05-15 20:00] VITALS: BP 108/74
[2017-05-15] MEDS: QUETIAPINE FUMARATE 100 MG TABLET PO SCH (20:57)
[2017-05-15] MEDS ORDERED: CLON0.1T14 PO (21:15)
[2017-05-15] MEDS ORDERED: QUET100T PO (21:15)
[2017-05-15] MEDS ORDERED: GABA-534 PO (21:15)
[2017-05-15] MEDS ORDERED: IBUP-1955 PO (21:15)
[2017-05-15] MEDS ORDERED: HYDR-3895 PO (21:15)
[2017-05-15] MEDS ORDERED: DICY20TA28 PO (21:15)
[2017-05-16] VITALS: BP 88/56
--- NOTE | 2017-05-16 | NUR ---
0000 COWS and CIWA deferred COWS and CIWA ordered Q4HWA. Pt is lying in bed resting with eyes closed. Vital signs obtained. Safety measures in place.
[2017-05-16 04:00] VITALS: BP 84/55
--- NOTE | 2017-05-16 04:00 | NUR ---
0400 COWS and CIWA deferred COWS and CIWA ordered Q4HWA. Pt is lying in bed resting with eyes closed. Vital signs obtained. Safety measures in place.
--- NOTE | 2017-05-16 07:05 | NUR ---
END OF SHIFT Report provided to day shift nurse. Pt is lying in bed resting. She is a 26 yo female admitted to [facility] on 05/09 for ETOH, BZD, and Phenobarbital dependence. Pt is A&O and ambulatory. NKA, full code status, and on a regular diet. She has a PMH of Hepatitis C, seizure, headaches, lyme disease, HPV, Chlamydia, tachycardia, anxiety, depression, and insomnia. On admission she reported using Vodka 350mL per day, Xanax 5-20mg per day, Heroin 2 grams per day, Phenobarbital 2 or 3 mg per day, methamphetamine 0.5grams per day. 5 day Subutex and Ativan tapers completed yesterday and she is scheduled for discharge today. Minimal s/s of withdrawal noted. Last COWS 2 and CIWA 2. No PRN medications administered. She drank 1276mL and slept for 8 hours. Fall and seizure precautions in place. Bed is down with call light in reach.
--- NOTE | 2017-05-16 07:30 | NUR ---
Start of shift note; Received report from night nurse. Patient is a 26 year old female admitted on 05/09/17 for Opiate/Benzo/ETOH withdrawals. Patient was placed on 5 day Subutex and 5 day Valium taper, completed taper without any adverse reactions noted. Patient reported history of Hep C, seizure r/t withdrawals, headaches, anxiety, depression, insomnia, lyme disease. Patient's last CIWA is 3 and last COWS is 4 at 0400. Track farley noted on bilateral upper extremities. Patient is on fall and seizure precaution. All safety measures secured. Patient medically cleared for discharge today. Will continue to monitor patient.
[2017-05-16 08:00] VITALS: BP 106/68
[2017-05-16 08:02] VITALS: BP 106/68
[2017-05-16] MEDS: BACLOFEN 10 MG TABLET PO SCH (08:02)
[2017-05-16] MEDS: CLONIDINE HCL 0.1 MG TABLET PO SCH (08:02)
[2017-05-16] MEDS: MULTIVITAMINS,THERAPEUTIC TABLET PO SCH (08:03)
[2017-05-16] MEDS: GABAPENTIN 300 MG CAPSULE PO SCH (08:03)
[2017-05-16] MEDS: FOLIC ACID 1 MG TABLET PO SCH (08:03)
[2017-05-16] MEDS: QUETIAPINE FUMARATE 25 MG TABLET PO SCH (08:03)
[2017-05-16] MEDS: THIAMINE HCL 100 MG TABLET PO SCH (08:03)
[2017-05-16] MEDS: buPROPion XL 150 MG TAB.SR.24H PO SCH (08:26)
--- NOTE | 2017-05-16 09:39 | NUR ---
Discharge note; Patient is AOX4. Patient is medically cleared for discharge. All valuables, belongings, prescriptions given to patient. Patient completed treatment without any adverse reactions. Patient denies any pain or suicidal ideations. Patient left the hospital in a stable condition. Met all patient's needs.
== END 2017-05-16 09:39 | disposition home or self-care (01) | DRG 895 ==
LOC: SRC 11:58
PROVIDERS: ADMIT Internal Medicine; ATTEND Internal Medicine
PROC: HZ2ZZZZ Detoxification Services for Substance Abuse Treatment (ICD-10-PCS; principal; 2017-05-09)
PROC: HZ41ZZZ Group Counseling for Substance Abuse Treatment, Behavioral (ICD-10-PCS; 2017-05-11)
DX: F10.230 Alcohol dependence with withdrawal, uncomplicated (principal); F15.20 Other stimulant dependence, uncomplicated; F31.60 Bipolar disorder, current episode mixed, unspecified; F13.230 Sedative, hypnotic or anxiolytic dependence with withdrawal, uncomplicated; Y90.0 Blood alcohol level of less than 20 mg/100 ml; F11.23 Opioid dependence with withdrawal; F41.0 Panic disorder [episodic paroxysmal anxiety]; Z79.899 Other long term (current) drug therapy; Z86.19 Personal history of other infectious and parasitic diseases; Z59.0 Homelessness; B19.20 Unspecified viral hepatitis C without hepatic coma; G47.00 Insomnia, unspecified; F17.210 Nicotine dependence, cigarettes, uncomplicated
CPT/HCPCS: 36415; 70030-TC; 80307; 80324; 80345; 80346; 80361; 83690; 83735; 84703; 85025; 86580; 86592; 86705; 86803; 87340; 87806; G0480; J3411; Q0162

== ENCOUNTER 2017-10-25 20:40 | Emergency (ER) | payer OTHER ==
[~2017-10-25] VITALS: Ht 154.9 cm; Wt 54.4 kg
[~2017-10-25 20:40] MED LIST: BUPR300T54 PO; CLON0.1T14 PO; DICY20TA28 PO; GABA-534 PO; HYDR-3895 PO; IBUP-1955 PO; QUET100T PO; QUET200T PO; TRAZ-144 PO
[2017-10-25 21:49] LABS: BASOPHILS % (AUTO) 0.7 % (0.0-2.0); EOSINOPHILS % (AUTO) 0.9 % (0.0-7.0); HEMATOCRIT 39.7 % (31.2-41.9); HEMOGLOBIN 13.6 g/dL (10.9-14.3); LYMPHOCYTES # (AUTO) 1.6 K/uL (20.0-40.0); LYMPHOCYTES % (AUTO) 32.4 % (20.5-51.5); MEAN CORPUSCULAR HEMOGLOBIN 29.3 uug (24.7-32.8); MEAN CORPUSCULAR HGB CONC 34 g/dL (32.3-35.6); MEAN CORPUSCULAR VOLUME 85.7 fL (75.5-95.3); MONOCYTES # (AUTO) 0.3 K/uL (2.0-10.0); MONOCYTES % (AUTO) 5.9 % (0.0-11.0); NEUTROPHILS # (AUTO) 2.9 K/uL (1.8-8.9); NEUTROPHILS % (AUTO) 60.1 % (38.5-71.5); PLATELET COUNT (AUTO) 261 K/uL (179-408); RED BLOOD CELL COUNT(AUTO) 4.64 MIL/uL (3.63-4.92); WHITE BLOOD COUNT (AUTO) 4.8 K/uL (3.8-11.8)
[2017-10-25 21:53] LABS: CREATININE 0.6 mg/dL (0.6-1.3)
[2017-10-25 21:59] LABS: BILIRUBIN,DIRECT 0.1 mg/dL (0.0-0.2); BILIRUBIN,TOTAL 0.4 mg/dL (0.2-1.0)
[2017-10-25] MEDS ORDERED: LIDOCAINE HCL 1% 20 ML VIAL IJ ONE (22:45)
[2017-10-26] MEDS ORDERED: NEOMY/BACITRA/POLYMYXIN B OINT UD PACKET TP ONE ×2 (01:00→01:08)
[2017-10-26] MEDS ORDERED: CEPHALEXIN MONOHYDRATE 500 MG CAPSULE PO ONE (01:00)
[2017-10-26] MEDS ORDERED: LIDOCAINE HCL 1% 20 ML VIAL IJ ONE (01:00)
--- NOTE | 2017-10-26 01:04 | NUR ---
Patient discharged to home in stable conditon. Written and verbal after care instructions given. Patient verbalizes understanding of instructions.
[2017-10-26] MEDS ORDERED: CEPHALEXIN MONOHYDRATE 500 MG CAPSULE ONE (01:08)
== END 2017-10-26 01:05 | disposition home or self-care (01) ==
LOC: ER 20:41
DX: S50.351A Superficial foreign body of right elbow, initial encounter (principal); B19.20 Unspecified viral hepatitis C without hepatic coma; F10.10 Alcohol abuse, uncomplicated; G47.00 Insomnia, unspecified; X58.XXXA Exposure to other specified factors, initial encounter; Y93.89 Activity, other specified; Y92.89 Other specified places as the place of occurrence of the external cause; Y99.8 Other external cause status
CPT/HCPCS: 10120; 36415; 73080; 80048; 80076; 84703; 85025; 85730; 99285; A4217; A4663; J3490